=== PATIENT | male | born 1975 | race Two or more races ===

== ENCOUNTER 2020-08-05 15:15 | Emergency (ER) | payer BC, OTHER ==
[~2020-08-05] VITALS: Ht 167.6 cm; Wt 99.8 kg
[2020-08-05 15:23] VITALS: BP 126/80
[2020-08-05] MEDS ORDERED: LIDOCAINE 1% HCL (LOCAL ANESTH.) INJ 20ML MDV IJ ONE (16:00)
[2020-08-05] MEDS ORDERED: cefTRIAXone SOD 1,000 MG VL IM ONE (16:00)
== END 2020-08-05 17:57 | disposition home or self-care (01) ==
LOC: ER 15:15
DX: S62.663A Nondisplaced fracture of distal phalanx of left middle finger, initial encounter for closed fracture (principal); S62.635A Displaced fracture of distal phalanx of left ring finger, initial encounter for closed fracture; S61.213A Laceration without foreign body of left middle finger without damage to nail, initial encounter; W22.8XXA Striking against or struck by other objects, initial encounter; Y93.89 Activity, other specified; Y92.89 Other specified places as the place of occurrence of the external cause; Y99.8 Other external cause status
CPT/HCPCS: 12006; 73130; 96372; 99283; J0696; J2001